=== PATIENT | female | born 1965 | race Caucasian/White ===

== ENCOUNTER → 2019-10-23 16:47 | Outpatient (CLI) | payer OTHER, SELFPAY ==
--- NOTE | ~2019-10-23 | XR_ITS ---
EXAMINATION: XR chest 2V DATE: 10/23/2019 16:59 INDICATION: Hemoptysis. TECHNIQUE: Frontal and lateral views of the chest were obtained. COMPARISON: None. FINDINGS: There is a mass in right lower lung zone on the frontal view. No pleural effusion or pneumo thorax. The heart size is normal. IMPRESSION: 1. Mass in right lower lung zone, which may be pneumonia or primary bronchogenic carcinoma. Chest CT is recommended. Reviewed, dictated and finalized at location A. IMPRESSION: 1. Mass in right lower lung zone, which may be pneumonia or primary bronchogeni c carcinoma. Chest CT is recommended.
== END ==
PROVIDERS: PCP Family Medicine; Visit Provider Family Medicine
DX: R04.2 Hemoptysis (principal); R91.8 Other nonspecific abnormal finding of lung field
CPT/HCPCS: 71046

== ENCOUNTER → 2019-10-24 13:49 | Outpatient (CLI) | payer OTHER, SELFPAY ==
--- NOTE | ~2019-10-24 | CT_ITS ---
EXAMINATION: CT chest w con EXAM DATE: 10/24/2019 14:37 INDICATION: Abnormal chest x-ray, lung mass. TECHNIQUE: Spiral CT of the chest following intravenous injection of 75 mL Omnipaque 350. Axial, cor onal and sagittal images were reviewed. Coronal maximum intensity pixel images of chest reviewed. Sid whitlock dose-length product (DLP) for this examination was 237.02 mGy-cm. The exposure was tailored accor ding to patient size (auto mA exposure control), and iterative reconstruction (ASIR) was used as isaias tional dose reduction technique. Correlation is made to chest x-ray 10/23/2019. FINDINGS: There is right lower lobe masslike opacity measuring 3 x 4 cm abutting both the diaphragm and the major fissure with some region of hypodensity probably necrosis, and small region of cavitati on. There is a mildly pathologically large and rounded lymph node in the right infrahilar region hu uring 1.4 x 1.2 cm, metastatic versus reactive. There is 5 mm round right middle lobe nodule on image 64, granuloma or metastatic disease. No other pulmonary nodules identified. Small to moderate amount of bilateral upper lobe bullous disease. No central pulmonary emboli. There are no pleural or pericardial effusions. Tracheobronchial tree is patent. There is no pneum othorax. Heart normal in size. No evidence of coronary arterial calcification. Upper abdomen is unremarkable. There is thoracic spondylosis without osteoblastic or osteolytic lesions identified. IMPRESSION: 1. Right lower lobe masslike opacity, small regions of necrosis and cavitation. Differential diagnos is includes necrotic pneumonia, primary lung cancer. Could attempt CT-guided biopsy but given challen ging location and possibility that this is pneumonia, consider treating and obtaining a 4 week follow -up chest x-ray. 2. Pathologically enlarged right infrahilar lymph node, metastatic versus reactive. 3. Right middle lobe nodule, granuloma versus metastatic. Reviewed, dictated and finalized at location A. IMPRESSION: 1. Right lower lobe masslike opacity, small regions of necrosis and cavitation . Differential diagnosis includes necrotic pneumonia, primary lung cancer. Coul d attempt CT-guided biopsy but given challenging location and possibility that this is pneumonia, consider treating and obtaining a 4 week follow-up chest x-r ay. 2. Pathologically enlarged right infrahilar lymph node, metastatic versus reac tive. 3. Right middle lobe nodule, granuloma versus metastatic.
== END ==
PROVIDERS: PCP Family Medicine; Visit Provider Family Medicine
DX: R91.8 Other nonspecific abnormal finding of lung field (principal)
CPT/HCPCS: 71260; Q9967

== ENCOUNTER 2019-10-26 15:20 | Outpatient (CLI) | payer OTHER, SELFPAY ==
[2019-10-31 22:15] LABS: Alpha-1-Antitrypsin, QN 123 mg/dL (83-199)
== END 2019-10-26 15:21 | disposition home or self-care (01) ==
LOC: ANHLAB 15:23
PROVIDERS: PCP Family Medicine; Visit Provider Internal Medicine Critical Care Medicine
DX: J98.4 Other disorders of lung (principal)
CPT/HCPCS: 36415; 82103; 82104

== ENCOUNTER 2019-11-23 17:27 | Outpatient (CLI) | payer OTHER, SELFPAY ==
--- NOTE | ~2019-11-23 | CT_ITS ---
EXAMINATION:CT chest wo con DATE: 11/23/2019 17:52 INDICATION: Lung mass. TECHNIQUE: Computed tomography (CT) of the chest was performed without intravenous contrast. Automate d exposure control and iterative reconstruction technique were employed. The dose-length product (DLP ) was 173.99 mGy-cm. COMPARISON: Chest CT 10/24/2019, CT abdomen 06/21/2003 FINDINGS: There is mild emphysema. Calcified left lung nodules and calcified left hilar lymph nodes a re consistent with old granulomatous disease. There are airspace opacities in the anterobasal segment right lower lobe with interval improvement. There is a 5 mm nodule in right middle lobe, stable from 06/21/2003, likely benign. No pleural effusion. The heart size is normal. No pericardial effusion. Pa rtially visualized is a peripelvic cyst in left kidney. There is thoracic kyphosis and mild spondylos is. There is mild chronic anterior wedging of multiple thoracic vertebral bodies. IMPRESSION: 1. Airspace opacities in the anterobasal segment right lower lobe with interval improvement, consiste nt with pneumonia. 2. Mild emphysema. Reviewed, dictated and finalized at location A. IMPRESSION: 1. Airspace opacities in the anterobasal segment right lower lobe with interval improvement, consistent with pneumonia. 2. Mild emphysema.
== END 2019-11-23 17:28 | disposition home or self-care (01) ==
PROVIDERS: PCP Family Medicine; Visit Provider Internal Medicine Critical Care Medicine
DX: R91.8 Other nonspecific abnormal finding of lung field (principal); J43.9 Emphysema, unspecified
CPT/HCPCS: 71250

== ENCOUNTER 2019-11-26 12:51 | Outpatient (CLI) | payer OTHER, SELFPAY ==
--- NOTE | 2019-11-29 11:10 | WPDPFTINT ---
PFT Interpretation PFT Interpretation: This PFT met all criteria for ATS standards and reproducibility FEV/FVC post bronchodilator 68% FEV1 89% or 2.03 liters FVC 98% or 3.00 liters TLC 102 % RV 102% RV/TLC 37% DLCO 62% or 13.7 liters when adjusted for alveolar volume but not adjusted for hemoglobin Flow volume loops showed some expiratory coving Impression: Mild airflow obstruction with mildly reduced diffusion capacity. This pattern is suggestive of COPD. Clinical correlation is advised.
--- NOTE | 2019-11-29 11:13 | WPDSIXMINUTE ---
Six Minute Walk Six Minute Walk: The patients O2 sats started at 95% and dropped as low as 91% Total walk distance 365.76 meters conclusion: This patient does not qualify for home oxygen therapy.
== END 2019-11-26 12:52 | disposition home or self-care (01) ==
LOC: ANHPFT 12:52
PROVIDERS: PCP Family Medicine; Visit Provider Internal Medicine Critical Care Medicine
DX: Z72.0 Tobacco use (principal); R94.2 Abnormal results of pulmonary function studies
CPT/HCPCS: 94060; 94618; 94726; 94729

== ENCOUNTER 2019-12-31 15:20 | Outpatient (CLI) | payer OTHER, SELFPAY ==
--- NOTE | ~2019-12-31 | CT_ITS ---
EXAMINATION: CT abdomen pelvis wo con DATE: 12/31/2019 15:44 INDICATION: Right lower quadrant abdominal pain. TECHNIQUE: Computed tomography (CT) of the abdomen and pelvis was performed without intravenous contr ast. Automated exposure control and iterative reconstruction technique were employed. The dose-length product was 658.89 mGy-cm. COMPARISON: CT abdomen 06/21/2003 FINDINGS: The visualized portions of the lung bases demonstrate emphysema and mild atelectasis. There is a 6 mm nodule in right middle lobe without change, consistent with granulomatous disease. No pleu ral effusion. The heart size is normal. No pericardial effusion. The liver and gallbladder are normal . Calcifications in the spleen are consistent with old granulomatous disease. The pancreas, adrenal g lands, and right kidney are normal. There is a 2.9 cm peripelvic cyst in left kidney. There is no uro lithiasis. Pelvic floor relaxation is noted. The appendix is fluid-filled and dilated to 11 mm with s urrounding fat stranding, consistent with appendicitis. There are no pathologically enlarged lymph no nathalia. There is trace ascites in right paracolic gutter. There is mild thoracolumbar spondylosis. IMPRESSION: 1. Acute appendicitis. Reviewed, dictated and finalized at location A. [employer] HEADING IMPRESSION: 1. Acute appendicitis.
== END 2019-12-31 15:21 | disposition home or self-care (01) ==
PROVIDERS: PCP Family Medicine; Visit Provider Family Medicine
DX: R10.31 Right lower quadrant pain (principal); K35.80 Unspecified acute appendicitis
CPT/HCPCS: 74176

== ENCOUNTER 2019-12-31 16:13 | Day surgery (SDC) | payer OTHER, SELFPAY ==
[2019-12-31] VITALS (11 sets, daily range): BP systolic 110–145; BP diastolic 61–78; PULSE 68–95; RESP 10–17; TEMP 36.1–36.8; O2SAT 93–100
--- NOTE | 2019-12-31 16:21 | ED.ABDPAIN ---
HPI - Abdominal Pain General Chief Complaint: Abdominal Pain Stated Complaint: Appendicitis from [facility] Time Seen by Provider: 12/31/19 16:16 History of Present Illness HPI narrative: Patient is a 54-year-old female who presents ER with appendicitis. Patient developed some abdominal pain on the right side 2 days ago. There is since increasing discomfort. She had 2 loose stools today. No fevers or chills or sweats. She is without nausea or vomiting. She has no Covid exposures or symptoms. She saw her primary care physician today who ordered an outpatient CT scan which was positive for appendicitis. Pain is in the right lower quadrant nonradiating. No alleviating factors. Related Data Allergies Allergy/AdvReac Type Severity Reaction Status Date / Time Cephalosporins Allergy Mild TOUNG Verified 12/31/19 16:43 SWELLING cephalexin Allergy Unknown tongue Verified 12/31/19 16:43 swell Sulfa (Sulfonamide Allergy Unknown Hives Verified 12/31/19 16:43 Antibiotics) Review of Systems Review of Systems: All systems reviewed & are unremarkable except as noted in HPI and below Constitutional: Constitutional: Denies chills, Denies fever(s) and Denies weakness ENT: Denies nasal congestion and Denies sore throat Respiratory: Respiratory: Denies cough, Denies dyspnea and Denies wheezing Gastrointestinal: Gastrointestinal: Reports abdominal pain, Reports diarrhea, Denies nausea and Denies vomiting [facility] Past Medical History Medical History (Updated 12/31/19 @ 17:06 by Carson Armando MD) Atypical pneumonia COPD (chronic obstructive pulmonary disease) Cystic-bullous disease of lung Depression Lung mass Lymphadenopathy, hilar Mixed hyperlipidemia GRIFFIN (obstructive sleep apnea) Overweight (BMI 25.0-29.9) Tobacco abuse Family History Family History Sibling Family history of coronary artery disease Patient's sister is in good health, Onset Age: 45 Family history of kidney disease, Onset Age: 32 Father Family history of amyotrophic lateral sclerosis, Onset Age: 57 Patient's father is Mother Family history of diabetes mellitus in first degree relative, Onset Age: 65 Social History Social History Smoking packs per day: 1 Smoking cigarettes per day: 20.0 Years smoked: 30 Smoking pack-years: 30.00 Smoking status: Current every day smoker Tobacco type: cigarettes Alcohol intake: never Substance use: never Substance use type: does not use Additional living arrangements comments: , lives with her Gender identity (if verbalized by the patient): Female Exam Narrative: Exam Narrative: GENERAL: Well-appearing, well-nourished, and in no acute distress. HEAD: Normocephalic, atraumatic. CHEST: Clear to auscultation. No respiratory distress. HEART: Regular rate and rhythm. Normal peripheral pulses. ABDOMEN: Soft, tender palpation right lower quadrant without guarding, nondistended. EXTREMITIES: Normal range of motion. No edema. SKIN: Warm, dry, no rash. NEURO: No focal deficits. Alert and oriented x3. PSYCH: Normal mood and affect. Course Course Emergency Course: Patient is able to receive penicillin products. She will be given Zosyn. I discussed the case with Dr. Salguero who will take patient to the OR. Patient has not had any solid food since noon when she had a crackers. She has had a couple sips of ice tea through the afternoon. Vital Signs Vital signs: Vital Signs Respiratory Rate 17 12/31/19 16:38 Temperature 98.3 F 12/31/19 16:46 Pulse Rate 84 12/31/19 16:46 Respiratory Rate 10 L 12/31/19 16:46 Blood Pressure 127/78 12/31/19 16:46 Pulse Oximetry 97 12/31/19 16:46 MDM - Abdominal Pain Lab Data Result diagrams: 12/31/19 16:38 12/31/19 16:38 Labs: Lab Results 1
[2019-12-31 16:44] LABS: Basophils Percent Auto 0.4 % (0.2-1.2); Eosinophils Absolute Auto 0.3 K/mm3 (0-0.3); Eosinophils Percent Auto 2.3 % (0-4.4); Hematocrit 42.2 % (37.0-47.0); Hemoglobin 14.2 g/dL (12.0-15.0); Immature Granulocyte Absolute 0.05 K/mm3 (0.00-0.031); Immature Granulocyte Percent A 0.5 % (0-0.5); Lymphocytes Absolute Auto 2.14 K/mm3 (0.9-3.2); Lymphocytes Percent Auto 19.5 % (18.3-44.2); Mean Corpuscular HGB Conc 33.6 g/dl (32-36); Mean Corpuscular Hemoglobin 32.1 pg (26-34); Mean Corpuscular Volume 95.3 fl (80-100); Mean Platelet Volume 10.6 fl (7.4-10.4); Monocytes Absolute Auto 0.8 K/mm3 (0.1-0.6); Monocytes Percent Auto 7.5 % (2.6-8.5); Neutrophils Absolute Auto 7.7 K/mm3 (1.3-6.7); Neutrophils Percent Auto 69.8 % (45.5-73.1); Platelet Count Result 226 k/mm3 (150-375); Red Blood Count 4.43 M/mm3 (4.2-5.4); Red Cell Distribution Width 14.2 % (11.5-14.5)
[2019-12-31 16:54] LABS: INR 0.8; Prothrombin Time 12.1 Seconds (11.1-14.7)
[2019-12-31 16:55] LABS: Partial Thromboplastin Time 25.8 SECONDS (22.3-36.8)
[2019-12-31 16:58] LABS: Anion Gap 7 mmol/L (8-16); Blood Urea Nitrogen 17 mg/dL (7-17); Calcium 9.5 mg/dL (8.4-10.2); Carbon Dioxide 28 mmol/L (22-30); Chloride 106 mmol/L (98-107); Estimated CRCL calculation 86 ml/min; Estimated Glomerular Filt Rate > 60; Glucose 114 mg/dL (65-105); Potassium 3.4 mmol/L (3.4-5.0); Sodium 141 mmol/L (137-145)
--- NOTE | 2019-12-31 17:03 | WPDANESEPPF ---
Anes - Initial Pre Proc Eval Procedure: Operation Date: 12/31/19 17:00 Proposed Procedures p Laparoscopic Appendectomy, Possible Open - Adan Salguero DO Date/Time: 12/31/19 17:03 Pre Op Diagnosis: Appendicitis from [facility] Patient Data Age: 54 Gender: F Height: 1.6 m Weight: 75 kg Last Vital Signs Temp 36.8 C 12/31/19 16:46 Pulse 84 12/31/19 16:46 Resp 10 L 12/31/19 16:46 BP 127/78 12/31/19 16:46 Pulse Ox 97 12/31/19 16:46 Allergies Allergy/AdvReac Type Severity Reaction Status Date / Time Cephalosporins Allergy Mild TOUNG Verified 12/31/19 16:43 SWELLING cephalexin Allergy Unknown tongue Verified 12/31/19 16:43 swell Sulfa (Sulfonamide Allergy Unknown Hives Verified 12/31/19 16:43 Antibiotics) Home Medications Medication Instructions Recorded Confirmed Type fexofenadine 180 mg tablet 180 mg PO DAILY #90 tablet 02/14/19 02/14/19 Rx atorvastatin 20 mg tablet 20 mg PO DAILY #90 tablet 08/08/19 Rx montelukast 10 mg tablet 10 mg PO DAILY #90 tablet 08/08/19 Rx venlafaxine 75 mg capsule,extended 75 mg PO DAILY #90 cap 08/08/19 Rx release 24 hr Laboratory Tests 12/31/19 12/31/19 12/31/19 16:38 16:38 16:38 WBC 11.0 K/mm3 H K/mm3 (4.5-10.0) RBC 4.43 M/mm3 M/mm3 (4.2-5.4) Hgb 14.2 g/dL g/dL (12.0-15.0) Hct 42.2 % % (37.0-47.0) MCV 95.3 fl fl (80-100) MCH 32.1 pg pg (26-34) MCHC 33.6 g/dl g/dl (32-36) RDW 14.2 % % (11.5-14.5) Plt Count 226 k/mm3 k/mm3 (150-375) MPV 10.6 fl H fl (7.4-10.4) Immature Gran % (Auto) 0.5 % % (0-0.5) Neut % (Auto) 69.8 % % (45.5-73.1) Lymph % (Auto) 19.5 % % (18.3-44.2) [place] % (Auto) 7.5 % % (2.6-8.5) Eos % (Auto) 2.3 % % (0-4.4) Baso % (Auto) 0.4 % % (0.2-1.2) Lymph # (Auto) 2.14 K/mm3 K/mm3 (0.9-3.2) [place] # (Auto) 0.8 K/mm3 H K/mm3 (0.1-0.6) Eos # (Auto) 0.3 K/mm3 K/mm3 (0-0.3) Baso # (Auto) 0.0 K/mm3 K/mm3 (0.0-0.1) Abs Immat Gran (auto) 0.05 K/mm3 H K/mm3 (0.00-0.031) Absolute Neuts (auto) 7.7 K/mm3 H K/mm3 (1.3-6.7) Absolute Nucleated RBC 0.0 K/mm3 K/mm3 (0.0-0.012) Nucleated RBC % 0.0 % % (0.0-0.2) PT 12.1 Seconds Seconds (11.1-14.7) INR 0.8 APTT 25.8 SECONDS SECONDS (22.3-36.8) Sodium 141 mmol/L mmol/L (137-145) Potassium 3.4 mmol/L mmol/L (3.4-5.0) Chloride 106 mmol/L mmol/L (98-107) Carbon Dioxide 28 mmol/L mmol/L (22-30) Anion Gap 7 mmol/L L mmol/L (8-16) BUN 17 mg/dL mg/dL (7-17) Creatinine 0.60 mg/dL L mg/dL (0.7-1.0) Estim Creat Clear Calc 86 ml/min ml/min Estimated GFR > 60 (59 - ) Glucose 114 mg/dL H mg/dL (65-105) Calcium 9.5 mg/dL mg/dL (8.4-10.2) Patient hx anesthesia problems: none Family hx anesthesia problems: none [facility] Past Medical History Medical History (Updated 12/31/19 @ 17:06 by Carson Armando MD) Atypical pneumonia COPD (chronic obstructive pulmonary disease) Cystic-bullous disease of lung Depression Lung mass Lymphadenopathy, hilar Mixed hyperlipidemia GRIFFIN (obstructive sleep apnea) Overweight (BMI 25.0-29.9) Tobacco abuse Family History Family History Sibling Family history of coronary artery disease Patient's sister is in good health, Onset Age: 45 Family history of kidney disease, Onset Age: 32 Father Family history of amyotrophic lateral sclerosis, Onset Age: 57 Patient's father is Mother Family history of diabetes mellitus in first degree relative, Onset Age: 65 Social History Social History Smo
--- NOTE | 2019-12-31 17:27 | PC.NURSE ---
took zozyn to pre-op for or staff to start
--- NOTE | 2019-12-31 17:35 | PM.IMHP ---
H&P: HPI History of Present Illness Date/Time: 12/31/19 17:35 Chief complaint: RLQ abdominal pain Narrative: Enrike Goldsmith is a 54 year old female who presented to the emergency department with right lower quadrant pain. She was sent over from the Radiology Department after getting a stat CT as an outpatient. She states that she began experiencing some vague right lower quadrant pain 2 nights ago, but then woke up feeling a little better. She then began having worsening pain yesterday and then this was continuing to worsen today. She saw her primary care physician who then sent her for a stat CT abdomen and pelvis. The CT showed evidence of acute appendicitis, therefore she was sent to the ED for further workup and treatment. She denies any fevers or chills and denies any nausea or vomiting. She did have a couple loose bowel movements yesterday, but otherwise denies any other changes in bowels. She has had a colonoscopy before which she reports was normal. Review of Systems Review of Systems: All systems reviewed & are unremarkable except as noted in HPI and below Constitutional: Constitutional: Denies chills and Denies fever(s) Eyes: Eyes: Denies change in vision ENT: Denies hearing loss, Denies neck pain and Denies sore throat Cardiovascular: Cardiovascular: Denies chest pain and Denies dyspnea Respiratory: Respiratory: Denies cough, Denies dyspnea and Denies wheezing Gastrointestinal: Gastrointestinal: Reports as per HPI Genitourinary: Genitourinary: Denies hematuria and Denies dysuria Musculoskeletal: Musculoskeletal: Denies arthralgias, Denies joint swelling and Denies neck pain Allergic/Immunologic: Allergic/Immunologic: Denies wheezing [facility] Past Medical History Medical History Atypical pneumonia COPD (chronic obstructive pulmonary disease) Cystic-bullous disease of lung Depression Lung mass Lymphadenopathy, hilar Mixed hyperlipidemia GRIFFIN (obstructive sleep apnea) Overweight (BMI 25.0-29.9) Tobacco abuse Surgical History Surgical History (Updated 12/31/19 @ 17:40 by Adan Salguero DO) History of hysterectomy History of incisional hernia repair Family History Family History Sibling Family history of coronary artery disease Patient's sister is in good health, Onset Age: 45 Family history of kidney disease, Onset Age: 32 Father Family history of amyotrophic lateral sclerosis, Onset Age: 57 Patient's father is Mother Family history of diabetes mellitus in first degree relative, Onset Age: 65 Social History Social History Smoking packs per day: 1 Smoking cigarettes per day: 20.0 Years smoked: 30 Smoking pack-years: 30.00 Smoking status: Current every day smoker Tobacco type: cigarettes Alcohol intake: never Substance use: never Substance use type: does not use Additional living arrangements comments: , lives with her Gender identity (if verbalized by the patient): Female Meds Home Medications and Allergies Home Medications Medication Instructions Recorded Confirmed Type fexofenadine 180 mg tablet 180 mg PO DAILY #90 tablet 02/14/19 02/14/19 Rx atorvastatin 20 mg tablet 20 mg PO DAILY #90 tablet 08/08/19 Rx montelukast 10 mg tablet 10 mg PO DAILY #90 tablet 08/08/19 Rx venlafaxine 75 mg capsule,extended 75 mg PO DAILY #90 cap 08/08/19 Rx release 24 hr ibuprofen 600 mg PO Q6H PRN 12/31/19 12/31/19 History Allergies Allergy/AdvReac Type Severity Reaction Status Date / Time Cephalosporins Allergy Mild TOUNG Verified 12/31/19 17:38 SWELLING cephalexin Allergy Unknown tongue Verified 12/31/19 17:38 swell Sulfa (Sulfonamide Allergy Unknown Hives Verified 12/31/19 17:38 Antibiotics) Vital Signs Vital Signs - 24 hr
[2019-12-31] MEDS: KETOROLAC 15 MG/ML VIAL (*BKC) IV PUSH (17:43)
[2019-12-31] MEDS: LACTATED RINGERS 1,000 ML 30 ML IV CONT ×2 (17:43→19:13)
--- NOTE | 2019-12-31 17:43 | WPDHPUPDATE1 ---
History and Physical Update Update Date/Time: 12/31/19 17:43 History and Physical has been reviewed, including an updated exam of the patient. There are NO changes in the patient's condition. Risks, benefits, and alternatives have been discussed and questions answered. Patient agrees to proceed with procedure.
--- NOTE | 2019-12-31 18:55 | SUR.OPER ---
EBL: 50cc
--- NOTE | 2019-12-31 19:04 | PM.PROC ---
Procedure Note - Detailed Date of procedure: 12/31/19 Pre-op diagnosis: Acute appendicitis Post-op diagnosis: other (acute retrocecal appendicitis, intraabdominal adhesions) Procedure performed: Laparoscopic Appendectomy Description of procedure: Procedure as well as risks, benefits, and alternatives were explained to the patient. The patient agreed to proceed. Written consent was obtained and placed in chart prior to procedure. The patient was brought back to surgical suite. She was placed supine on operating table. Time-out was done to confirm the patient and procedure. The patient was then intubated by the Anesthesia Department. Her abdomen was prepped and draped in sterile fashion using chlorhexidine prep. A 5 mm incision was made in the left upper quadrant and a 5 mm Optiview trocar was advanced through the abdominal layers under direct visualization. Once inside the peritoneal cavity, carbon dioxide insufflation was used to create a pneumoperitoneum. The camera was inserted and the abdomen was inspected. Adhesions were identified to the abdominal wall and previous hernia repair in midline. The patient was then placed in slight Trendelenburg position and rotated to the left. A 5 mm incision was made in the suprapubic region in midline and a 5 mm trocar was inserted under direct visualization. A 12 mm incision was made in the left lower quadrant and a 12 mm trocar was inserted under direct visualization. The adhesions were carefully taken down with scissors. The right lower quadrant was carefully inspected. The cecum was identified and then this was traced back to the appendix. The appendix was identified and grasped at the mesoappendix and lifted anteriorly. Careful blunt dissection was carried out at the base of the appendix through the mesoappendix using a [place] grasper. An Endo-GERDA 45 mm blue load stapler was then advanced across the base of the appendix and clamped and fired. A white reload was then clamped across the mesoappendix and fired. This freed up our appendix completely. It was then placed in an EndoCatch bag and removed through the left lower quadrant port. The staple lines were then inspected. Hemostasis appeared adequate and the staple lines appeared secure. The area was then irrigated with sterile saline. The pelvis was then carefully inspected and irrigated with sterile saline as well and the remainder of the abdomen was carefully inspected. The patient was then flattened out in bed. One final inspection was made around the abdominal cavity and no other abnormalities were seen. The left lower quadrant port was removed and a Delonte-Shashank cone was used to approximate the fascia with a 0 Vicryl simple interrupted suture. The remaining ports were then removed under direct visualization. The camera was removed and the pneumoperitoneum was released. 0.5% bupivacaine with epinephrine was infiltrated locally around each of the incisions. The skin of the incisions was then approximated using 4-0 Monocryl subcuticular suture and Exofin glue was applied on top. The patient was then awakened from anesthesia, extubated, and transferred to Recovery. Anesthesia: GETA and local (0.25% bupivicaine with epi) Surgeon: Adan Salguero DO Estimated blood loss (mL): 50 Pathology: yes (Appendix) Complications: No immediate complications Condition: stable Disposition: same day Findings: This is a 54-year-old woman who presented with right lower quadrant pain for the past [address] abdomen and pelvis was performed as an outpatient by her PCP today and this showed evidence of acute appendicitis. She was then sent directly over to the emergency department for further workup and treatment. Her white blood count was slightly elevated at 11,000 thousand. Discussions were made with the patient about treatment options and decision was made to proceed with laparoscopic appendectomy, possible open. Laparoscopic appendectomy was performed.
--- NOTE | 2019-12-31 19:09 | SUR.OPER ---
URINE:100cc
[2019-12-31] MEDS: oxyCODONE HCL (*CRX) 5 MG TAB IR PO (20:28)
== END 2019-12-31 21:05 | disposition home or self-care (01) ==
LOC: ANHED 16:57 → ANHSURGERY 17:11
PROVIDERS: Emergency Provider Emergency Medicine; PCP Family Medicine; Visit Provider Surgery
PROC: 0DTJ4ZZ Resection of Appendix, Percutaneous Endoscopic Approach (ICD-10-PCS; CPT 44970; principal; 2019-12-31 17:00)
DX: K35.30 Acute appendicitis with localized peritonitis, without perforation or gangrene (principal); K36 Other appendicitis; J44.9 Chronic obstructive pulmonary disease, unspecified; E78.2 Mixed hyperlipidemia; G47.33 Obstructive sleep apnea (adult) (pediatric); F32.9 Major depressive disorder, single episode, unspecified; F17.210 Nicotine dependence, cigarettes, uncomplicated
CPT/HCPCS: 44970; 36415; 74176; 80048; 85025; 85610; 85730; 86850; 86900; 86901; 88304; 99285; A9270; J0330; J1100; J1885; J2250; J2405; J2543; J2704; J2710; J3010; J7030; J7120

== ENCOUNTER → 2021-05-18 09:00 | Outpatient (CLI) | payer OTHER, SELFPAY ==
--- NOTE | ~2021-05-18 | CT_ITS ---
EXAMINATION: CT lung screening DATE: 05/18/2021 09:29 INDICATION: Personal history of nicotine dependence, current smoke with 30 pack year history TECHNIQUE: Computed tomography (CT) of the chest was performed without intravenous contrast. The dose -length product (DLP) was 166.02 mGy-cm. Automated exposure control and iterative reconstruction tech tic were employed. COMPARISON: 11/23/2019 FINDINGS: There is a stable 4 mm nodule of the right middle lobe. There is moderate emphysema. No new pulmonary nodules are identified. The lungs are free of acute opacities. There is no pleural effusio n or pneumothorax. No pathologically enlarged thoracic lymph nodes are identified. The heart size is normal. There is mild thoracic spondylosis. Mild chronic anterior wedging of multiple thoracic verte bral bodies is noted. IMPRESSION: 1. Lung-RADS category 2: Benign appearance or behavior. Continue annual screening with noncontrast lo w-dose chest CT in 12 months. Reviewed, dictated and finalized at location A. IMPRESSION: 1. Lung-RADS category 2: Benign appearance or behavior. Continue annual screeni ng with noncontrast low-dose chest CT in 12 months.
== END ==
PROVIDERS: PCP Family Medicine; Visit Provider Family Medicine
DX: Z12.2 Encounter for screening for malignant neoplasm of respiratory organs (principal); Z87.891 Personal history of nicotine dependence
CPT/HCPCS: 71271

== ENCOUNTER 2021-12-15 16:43 | Outpatient (CLI) | payer OTHER, SELFPAY ==
--- NOTE | ~2021-12-15 | XR_ITS ---
EXAMINATION: XR abdomen/kub 1V DATE: 12/15/2021 17:09 INDICATION: Unspecified abdominal pain. Constipation. TECHNIQUE: A supine view of the abdomen on 2 radiographs was obtained. COMPARISON: CT abdomen and pelvis 12/31/2019 FINDINGS: There are no dilated loops of bowel. There is a moderate volume of stool in the colon. IMPRESSION: 1. Normal bowel gas pattern. Reviewed, dictated and finalized at location A. [employer]
== END 2021-12-15 16:44 | disposition home or self-care (01) ==
PROVIDERS: PCP Family Medicine; Visit Provider Family Medicine
DX: R10.9 Unspecified abdominal pain (principal)
CPT/HCPCS: 74018

== ENCOUNTER → 2022-05-24 10:42 | Outpatient (CLI) | payer OTHER, SELFPAY ==
--- NOTE | ~2022-05-24 | CT_ITS ---
CT Scan of the Chest without Contrast: Clinical Indication: Lung cancer screening, personal history of tobacco dependence Technique: Contiguous sections were acquired throughout the chest without intravenous contrast. Dose reduction technique was used on this scan by utilizing automated exposure control and iterative recon struction technique. The dose-length product (DLP) was 81.75 mGy-cm. COMPARISON: 05/18/2021, 10/24/2019 Findings: There is no evidence of any significant mediastinal, hilar or axillary lymphadenopathy. The mediastin al soft tissues appear normal. There is no evidence of pleural or pericardial effusion. There is paraseptal emphysematous change. 5 mm right upper lobe pulmonary nodules unchanged (axial im age 65). Images through the upper abdomen reveal no abnormalities. Impression: Lung RADS 2: Benign appearance. 12 month follow-up screening CT advised. Reviewed, dictated and finalized at [facility]. Impression: Lung RADS 2: Benign appearance. 12 month follow-up screening CT advised.
== END ==
PROVIDERS: PCP Family Medicine; Visit Provider Family Medicine
DX: Z12.2 Encounter for screening for malignant neoplasm of respiratory organs (principal); F17.210 Nicotine dependence, cigarettes, uncomplicated
CPT/HCPCS: 71271

== ENCOUNTER → 2022-07-29 15:45 | Outpatient (CLI) | payer OTHER, SELFPAY ==
--- NOTE | ~2022-07-29 | MM_ITS ---
EXAMINATION: MM screening frances BI w [facility] HISTORY: Screening mammogram TECHNIQUE: Craniocaudal and mediolateral oblique 3-D tomosynthesis images were obtained and synthetic 2-D images were generated. CAD analysis was submitted and interpreted. COMPARISON: 09/27/2018 bilateral screening mammogram BREAST PARENCHYMAL COMPOSITION: There are scattered areas of fibroglandular density. FINDINGS: There is no evidence of suspicious mass, calcification, or architectural distortion to sugg est malignancy in either breast. There has been no suspicious interval change. IMPRESSION: 1. No mammographic evidence of malignancy. 2. Recommend routine screening mammography in one year. BI-RADS Category 1: Negative Reviewed, dictated and finalized at location A.
== END ==
PROVIDERS: PCP Family Medicine; Visit Provider Obstetrics & Gynecology
DX: Z12.31 Encounter for screening mammogram for malignant neoplasm of breast (principal)
CPT/HCPCS: 77063; 77067

== ENCOUNTER 2023-09-23 09:35 | Outpatient (CLI) | payer OTHER, SELFPAY ==
--- NOTE | ~2023-09-23 | US_ITS ---
US abdomen limited INDICATION: Midabdominal pain PROCEDURE: Realtime right upper abdominal ultrasound. COMPARISON: Ultrasound dated 05/28/2014 FINDINGS: The pancreas is normal without focal mass or pancreatic ductal dilation. Liver echotexture is normal without focal mass or intrahepatic biliary dilatation. There is normal directional flow i n the portal vein. The gallbladder is normal without stones, gallbladder wall thickening or pericholecystic fluid. Comm on bile duct measures 4 mm. No sonographic Maier's sign. IMPRESSION: 1: Normal limited abdominal ultrasound. Reviewed, dictated and finalized at location B.
== END 2023-09-23 09:36 | disposition home or self-care (01) ==
LOC: ANHIMG 09:37
PROVIDERS: PCP Family Medicine; Visit Provider Family Medicine
DX: R10.9 Unspecified abdominal pain (principal)
CPT/HCPCS: 76705

== ENCOUNTER 2023-12-19 12:45 | Outpatient (CLI) | payer OTHER, SELFPAY ==
--- NOTE | ~2023-12-19 | CT_ITS ---
EXAMINATION: CT lung screening DATE: 12/19/2023 12:59 INDICATION: Z87.891 - Personal history of nicotine dependence TECHNIQUE: Computed tomography (CT) of the chest was performed without intravenous contrast. Addition al 3D reconstructions utilizing coronal maximum intensity projection (MIP) were performed. Automated exposure control and iterative reconstruction technique were employed. The dose-length product was 73 .04 mGy-cm. COMPARISON: 05/24/2022 FINDINGS: Mild to moderate upper lobe predominant paraseptal emphysema. Unchanged 5 mm right middle lobe pulmon mechelle nodule. Unchanged 3-4 mm right upper lobe nodule. There are a few additional smaller nodules, amanda e of which are calcified consistent with old granulomatous disease. No new or enlarging pulmonary nod ules identified. No pneumonia, pulmonary edema or pleural effusion. Heart size is normal. Aortic valv e calcification. No pericardial effusion. Thoracic aorta is normal in caliber. No pathologically enla rged thoracic lymphadenopathy. Splenic calcification consistent with old granulomatous disease. Visua lized upper abdomen is otherwise unremarkable. Thoracic kyphosis with a few chronic mild compression fractures in the mid and lower thoracic spine. Moderate thoracic spondylosis. IMPRESSION: 1. Lung-RADS category 2: Benign appearance or behavior. Continue annual screening with noncontrast lo w-dose chest CT in 12 months. Reviewed, dictated and finalized at location B. [employer] IMPRESSION: 1. Lung-RADS category 2: Benign appearance or behavior. Continue annual screeni ng with noncontrast low-dose chest CT in 12 months.
== END 2023-12-19 12:46 | disposition home or self-care (01) ==
LOC: MICIMG 12:45
PROVIDERS: PCP Family Medicine; Visit Provider Family Medicine
DX: Z12.2 Encounter for screening for malignant neoplasm of respiratory organs (principal); Z87.891 Personal history of nicotine dependence
CPT/HCPCS: 71271